=== PATIENT | female | born 1945 | race Caucasian/White ===

== ENCOUNTER 2018-07-20 09:15 | Emergency (ER) | payer OTHER ==
[2018-07-20 09:31] VITALS: BP 124/57; PULSE 65; TEMP 98.4; BMI 32.8
--- NOTE | 2018-07-20 10:02 | PDOC ---
History of Present Illness - General Chief Complaint: Pain Stated Complaint: PAIN TO BOTH SIDES OF NECK WITH SWELLING 3WEEKS Time Seen by Provider: 07/20/18 09:19 - History of Present Illness Initial Comments: 07/20/18 13:22 Chief complaint: Neck swelling History of present illness: Patient has noticed gradual swelling of the sides of her neck, anteriorly anteriorly, for about 4 weeks. No melissa pain but due to the swelling the neck feels stiff and achy. Review of systems: Denies any constitutional symptoms such as fever/chills, fatigue, malaise, weight loss, chest pain, shortness of breath, abdominal pain, nausea, vomiting, diarrhea, urinary tract symptoms, vaginal bleeding or discharge, visual or focal neurologic symptoms, unsteadiness of gait Past medical history: Healthy female, mild hypertension and elevated cholesterol. Parathyroidectomy recently. Social history: No tobacco alcohol or nonprescription drugs. Active and without disability Family history: Hodgkin's lymphoma, otherwise negative Physical exam: Alert oriented 3 well-developed well-nourished no acute distress cheerful and cooperative Afebrile, vital signs normal PERRLA, fundi benign, ENT clear Neck supple without bruit. There is a diffuse swelling noted bilaterally, lower anterior neck and supraclavicular areas. No palpable nodes or mass. Chest clear CV regular without murmur rub or gallop Abdomen soft nontender without mass or organomegaly Neurological intact Impression: Unusual swelling of both sides of the neck, without palpable masses Plan: Blood work and CT, further evaluation depending on results. Past History - Past Medical History Allergies/Adverse Reactions: Allergies Allergy/AdvReac Type Severity Reaction Status Date / Time levofloxacin [From Levaquin] Allergy Severe ACHILLES Verified 07/20/18 09:18 TENDON WEAKNESS meperidine HCl [From Demerol] Allergy Severe Low Blood Verified 07/20/18 09:18 Pressure,ANAPHYLACTIC codeine [Codeine] Allergy Intermediate AGITATION Verified 07/20/18 09:18 shellfish derived Allergy Intermediate Vomiting Verified 07/20/18 09:18 Home Medications: Ambulatory Orders Cholecalciferol (Vitamin D3) [Vitamin D3] 1,000 unit PO DAILY 07/20/18 Olmesartan Medoxomil [Benicar] 1 tab PO DAILY 07/20/18 Anemia: No Asthma: No Cancer: No Cardiac Disorders: (OCC ARRHYTHMIA) CVA: No COPD: No CHF: No Dementia: No Diabetes: No GI Disorders: No Disorders: No HTN: Yes Hypercholesterolemia: Yes Kidney Stones: Yes Liver Disease: No Seizures: No Thyroid Disease: No - Surgical History Abdominal Surgery: No Appendectomy: No Cardiac Surgery: No Cholecystectomy: No Lung Surgery: No Neurologic Surgery: No Orthopedic Surgery: No - Suicide/Smoking/Psychosocial Hx Smoking History: Never smoked Have you smoked in the past 12 months: No Number of Cigarettes Smoked Daily: 0 Information on smoking cessation initiated: No Hx Alcohol Use: No Drug/Substance Use Hx: No Substance Use Type: None Hx Substance Use Treatment: No *Physical Exam - Vital Signs Last Vital Signs Temp Pulse Resp BP Pulse Ox 98.4 F 65 16 124/57 L 99 07/20/18 09:17 07/20/18 09:17 07/20/18 09:17 07/20/18 09:17 07/20/18 09:17 ED Treatment Course - LABORATORY CBC & Chemistry Diagram: 07/20/18 10:09 07/20/18 10:09 Medical Decision Making - Medical Decision Making 07/20/18 15:36 CBC and chemistries without significant abnormalities Urinalysis 20-30 white cells, but the patient has a prolapsed bladder and is undergoing evaluation by your slitting machine operator for this condition. Culture taken and is pending to rule out infection. Patient told to obtain culture results in 2 days and that an antibiotic may be needed if the culture results are positive. CT scan of the neck reveals no adenopathy. No masses other than multiple thyroid cysts for which the patient is undergoing evaluation with her corking machine operator and surgeon. There is interstitial disease in the left upper lobe, etiology uncertain, and the patient is referred to clean room assembler for further workup. She is aware that this may be a serious condition and requires further timely evaluation. Fully ambulatory and in no pain or other distress upon discharge to follow-up as directed. *DC/Admit/Observation/Transfer Diagnosis at time of Disposition: Thyroid nodule, Interstitial lung disease - Discharge Dispostion Disposition: HOME Condition at time of disposition: Stable Decision to Admit order: No - Referrals Referrals: Dionicio Jenkins MD [Staff Physician] - 1 week - Patient Instructions Additional Instructions: There are multiple thyroid nodules visible in your CAT scan. They require further evaluation and treatment by an endocrine specialist There is congestion in your upper left lung. This also needs further evaluation by a peer specialist Urine showed the possibility of a urinary tract infection. Definite results of her urine culture will take several days and if positive will require antibiotic treatment. Check culture results in 2-3 days. See primary care physician to coordinate the evaluation of thyroid nodules and lung congestion as directed. - Post Discharge Activity
[2018-07-20 10:44] LABS: BASO % 0.5 % (0-2.0); EOS % 2.4 % (0-4.5); HEMATOCRIT 40.3 % (32.4-45.2); HEMOGLOBIN 13.3 GM/dl (10.7-15.3); LYMPH % 28.7 % (8-40); MCH 30.7 pg (25.7-33.7); MEAN CELL VOLUME 92.9 fl (80-96); MEAN PLT VOLUME 6.7 fl (7.5-11.1); MONO % 11.7 % (3.8-10.2); NEUT % 56.7 % (42.8-82.8); PLATELET COUNT 280 K/MM3 (134-434); RBC 4.34 M/mm3 (3.60-5.2); RDW 12.2 % (11.6-15.6); WHITE BLOOD COUNT 4.6 K/mm3 (4.0-10.8)
[2018-07-20 11:04] LABS: ALBUMIN 3.5 g/dl (3.4-5.0); BILIRUBIN,TOTAL 0.5 mg/dl (0.2-1); CALCIUM 8.5 mg/dl (8.5-10); CREATININE 0.7 mg/dl (0.55-1.3); POTASSIUM 3.9 mmol/L (3.5-5.1); TOT PROT 6.3 g/dl (6.4-8.2)
[2018-07-20 13:21] LABS: EPITHELIAL CELLS 2+ /hpf
== END 2018-07-20 14:23 | disposition home or self-care (01) ==
LOC: FER 09:15
DX: E07.9 Disorder of thyroid, unspecified (principal); J84.9 Interstitial pulmonary disease, unspecified; E78.00 Pure hypercholesterolemia, unspecified; I10 Essential (primary) hypertension; I49.9 Cardiac arrhythmia, unspecified
CPT/HCPCS: 36415; 70491-TC; 71046-TC-FY; 80053; 81003; 81015; 85025; 87086; 99283-25